=== PATIENT | male | born 1965 | race Caucasian/White ===

== ENCOUNTER 2022-04-07 22:16 | Inpatient (IN) | payer BC ==
[2022-04-07] MEDS ORDERED: Morphine 4 MG/ML VIAL ONE (23:22)
[2022-04-07] MEDS ORDERED: Ondansetron PF 4 MG/2 ML Vial ONE (23:22)
[2022-04-07 23:28] LABS: #Basophils 0.1 10x3/uL (0.0-0.2); #Monocytes 0.9 10x3/uL (0.0-1.1); #Neutrophils 8.7 10x3/uL (1.5-8.4); %Basophils 0.9 % (0.0-2.0); %Eosinophils 0.3 % (0.0-6.0); %Lymphocytes 14.2 % (18.0-47.0); %Monocytes 8.2 % (0.0-10.0); Hemoglobin 15.9 g/dL (13.5-17.5); Mean Corpuscular HGB CONC 35.8 g/dL (32.0-36.0); Mean Corpuscular Hemoglobin 30.9 pg (27.0-33.0); Mean Corpuscular Volume 86.4 fl (81.2-95.1); Mean Platelet Volume 11.1 fl (7.4-10.4); Platelet Count 260 10x3/uL (150-450); RBC Distribution Width 11.4 % (11.5-14.5); Red Blood Cell (RBC) Count 5.14 10x6/uL (4.32-5.72); White Blood Cell (WBC) Count 11.4 10x3/uL (3.5-10.5)
[2022-04-07 23:38] LABS: ALT (SGPT) 10 U/L (8-55); AST (SGOT) 15 U/L (5-34); Albumin 4.7 g/dL (3.5-5.0); Alkaline Phosphatase 54 U/L (40-110); Anion Gap 16 mmol/L (10-20); BUN (Urea Nitrogen) 15 mg/dL (8.4-25.7); Bilirubin, Total 1.5 mg/dL (0.2-1.2); Calc. Creatinine Clearance 0 mL/min (70-130); Calcium 9.7 mg/dL (7.8-10.44); Carbon Dioxide 23 mmol/L (22-29); Chloride 99 mmol/L (98-107); Estimated GFR 90; Globulin 2.7 g/dL (2.4-3.5); Glucose 108 mg/dL (70-105); Lipase 23 U/L (8-78); Potassium 3.6 mmol/L (3.5-5.1); Protein, Total 7.4 g/dL (6.0-8.3); Sodium 134 mmol/L (136-145)
[2022-04-08] MEDS ORDERED: Piperacillin/Tazobactam 4.5 GM VIAL ONE (01:36)
[2022-04-08 02:18] LABS: SARS-CoV-2 NAA Rapid Test Not Detected (NotDetected)
[2022-04-08] MEDS ORDERED: Morphine 4 MG/ML VIAL SLOW IVP PRN (03:07)
[2022-04-08] MEDS ORDERED: Ondansetron PF 4 MG/2 ML Vial IVP PRN ×2 (03:15→09:17)
[2022-04-08] MEDS ORDERED: Lactated Ringer's 1,000 ML IV SCH (03:15)
[2022-04-08] MEDS ORDERED: Ondansetron ODT 4 MG TAB SL PRN (03:15)
[2022-04-08 03:20] VITALS: BMI 27.3
[2022-04-08] MEDS ORDERED: Calcium Carbonate 500 MG ChewTAB PO PRN (09:17)
[2022-04-08] MEDS ORDERED: HYDROcodone/Acetaminophen 10/325 mg Tablet PO PRN (09:17)
[2022-04-08] MEDS ORDERED: Morphine 2 MG/ML VIAL SLOW IVP PRN (09:17)
[2022-04-08] MEDS ORDERED: Mag-Al 1200 mg/1200 mg/30 ML UDCUP PO PRN (09:17)
[2022-04-08] MEDS ORDERED: Dextrose 50% Abboject 50 ML SYRINGE SLOW IVP PRN (09:17)
[2022-04-08] MEDS ORDERED: Promethazine HCl 25 MG/ML VIAL IM PRN (09:17)
[2022-04-08] MEDS ORDERED: hydrALAZINE 20 MG/ML VIAL SLOW IVP PRN (09:17)
[2022-04-08] MEDS ORDERED: Dextrose 5% in Water 1,000 ML IV PRN (09:17)
[2022-04-08] MEDS ORDERED: Piperacillin/Tazobactam 3.375 GM in Sodium Chloride 0.9% 100 ML IVPB SCH (10:00)
[2022-04-08] MEDS ORDERED: Bupivacaine 0.25% HCL 30 ML VIAL ONE ×2 (12:25→14:52)
[2022-04-08] MEDS ORDERED: Iopamidol 15 ML ONE (12:26)
[2022-04-08] MEDS ORDERED: EPINEPHrine 1 MG/ML AMP ONE (12:26)
[2022-04-08] MEDS: D5 1/2 NS w/20 mEq KCL 1,000 ML IV SCH ×2 (13:07→17:50)
[2022-04-08] MEDS: Ketorolac Tromethamine 30 MG/ML VIAL IVP SCH ×2 (13:14→19:32)
[2022-04-08] MEDS ORDERED: CEFAZOLIN 2 GM VIAL ONE (14:22)
[2022-04-08] MEDS ORDERED: Fentanyl 100 MCG/2 ML VIAL ONE (15:04)
[2022-04-08] MEDS ORDERED: Glycopyrrolate 0.2 MG/ML 5 ML SYRINGE ONE (15:04)
[2022-04-09] MEDS: Ketorolac Tromethamine 30 MG/ML VIAL IVP SCH ×2 (02:15→05:39)
[2022-04-09] MEDS: D5 1/2 NS w/20 mEq KCL 1,000 ML IV SCH ×2 (02:15→08:30)
[2022-04-09 07:54] VITALS: BP 146/85; TEMP 98.8
== END 2022-04-09 09:58 | disposition home or self-care (01) | DRG 419 ==
LOC: CSHERS 22:16 → CSHTELE 04-08 02:46 → OBSVTOIN 04-08 02:46
PROVIDERS: ADMIT Surgery; ATTEND Surgery
PROC: 0FT44ZZ Resection of Gallbladder, Percutaneous Endoscopic Approach (ICD-10-PCS; principal; 2022-04-08)
PROC: BF0C1ZZ Plain Radiography of Hepatobiliary System, All using Low Osmolar Contrast (ICD-10-PCS; 2022-04-08)
DX: K81.0 Acute cholecystitis (principal); Z20.822 Contact with and (suspected) exposure to COVID-19
CPT/HCPCS: 47532; 76705; 80053; 83690; 84484; 85025; 88304; 93005; C1889; J0171; J1610; J1885; J2270; J2405; J2543; J3010; J3480; Q9967; S0020; U0002